=== PATIENT | male | born 1990 | race African-American/Black ===

== ENCOUNTER 2023-04-08 15:17 | Emergency (ER) | payer MEDICAID ==
[~2023-04-08] VITALS: Ht 190.5 cm; Wt 150.0 kg
[2023-04-08 15:29] VITALS: BP 139/101; PULSE 93; RESP 18; TEMP 98.6; O2SAT 97
[2023-04-08] MEDS ORDERED: PENI500T MT (16:44)
== END 2023-04-08 18:23 | disposition home or self-care (01) ==
LOC: ER 15:17
DX: J02.9 Acute pharyngitis, unspecified (principal)
CPT/HCPCS: 99281